=== PATIENT | male | born 1965 | race Caucasian/White ===

== ENCOUNTER 2023-11-20 09:08 | Day surgery (SDC) | payer BC ==
[~2023-11-20] VITALS: Ht 177.8 cm; Wt 77.1 kg
[2023-11-20] MEDS ORDERED: propofoL 200 MG/20 ML VIAL As Ordered ONE (09:39)
[2023-11-20] MEDS ORDERED: MIDAZOLAM INJ 2MG/2ML VIAL As Ordered ONE (09:39)
[2023-11-20] MEDS ORDERED: fentaNYL 100 MCG/2 ML INJECTION As Ordered ONE (09:39)
[2023-11-20] MEDS ORDERED: LIDOCAINE 2% 100MG/5ML SDV (FOR ANES.) As Ordered ONE (09:40)
[2023-11-20] MEDS ORDERED: ONDANSETRON 4MG 2ML VIAL As Ordered ONE (09:40)
[2023-11-20] MEDS: LR 1,000 ML IV SCH (09:47)
[2023-11-20] MEDS: ceFAZolin SOD 2 GM in IV 1 EA IV ONE (11:29)
[2023-11-20] MEDS ORDERED: ACETAMINOPHEN 1000MG 100ML IV BAG As Ordered ONE (11:42)
[2023-11-20] MEDS ORDERED: KETOROLAC 60MG 2ML VIAL As Ordered ONE (11:48)
[2023-11-20] MEDS: GENTAMICIN SULF 80MG/2ML VIAL As Ordered ONE (11:54)
[2023-11-20] MEDS: LIDOCAINE 2% MDV 20ML VIAL As Ordered ONE (11:54)
[2023-11-20 12:39] VITALS: BP 123/70; TEMP 97.9; O2SAT 97
== END 2023-11-20 12:45 | disposition home or self-care (01) ==
LOC: M SDC 09:08
PROVIDERS: ATTEND Podiatrist
DX: M20.41 Other hammer toe(s) (acquired), right foot (principal)
CPT/HCPCS: 28285; 73630; 76000; 88300; J0131; J0665; J0690; J1100; J1580; J1885; J2250; J2405; J3010